=== PATIENT | female | born 1990 | race Caucasian/White ===

== ENCOUNTER 2017-01-18 22:12 | Emergency (ER) | payer MEDICAID ==
--- NOTE | 2017-01-18 22:25 | Emergency Department Record ---
History of Present Illness - General Chief Complaint: Chest Pain Stated Complaint: CHEST PAIN/ANKLE SWOLLEN Time Seen by Provider: 01/18/17 22:13 Source: Patient Mode of Arrival: Ambulatory Limitations: No limitations - History of Present Illness Initial Comments: 26 yo female presents to ED with a CC of right ankle swelling and intermittent chest pain that began yesterday. Patient denies injury to the ankle, denies fevers, chills, or cough symptoms. Patient denies calf pain or swelling, and denies previous history of DVT. Patient does not use OCPs, and denies health problems at her baseline other than SVT. MD Complaint: Chest pain Onset/Timin -: Days(s) Pain Radiation: None Severity: Mild Quality: Aching Improves With: Nothing Worsens With: Nothing - Related Data On Oral Contraceptives: No Allergies Allergy/AdvReac Type Severity Reaction Status Date / Time latex Allergy HIVES Unverified 05/13/16 13:23 Review of Systems Constitutional: Denies: Chills, Fever, Malaise, Night sweats Eyes: Denies: Eye discharge, Eye pain ENT: Denies: Congestion, Ear pain, Epistaxis Respiratory: Denies: Cough, Dyspnea Cardiovascular: Reports: Chest pain. Denies: Dyspnea on exertion, Palpitations , Syncope Endocrine: Denies: Fatigue, Heat or cold intolerance Gastrointestinal: Denies: Abdominal pain, Nausea, Vomiting Genitourinary: Denies: Incontinence, Retention Musculoskeletal: Reports: Arthralgia, Joint swelling (right medial ankle swelling). 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 Hx Dementia: Grandparents Hx HTN: Father Physical Exam - General General Appearance: Alert, Oriented x3, Cooperative, No acute distress, Other ( drinking a Big Gulp on exmaination, well appearing) Limitations: No limitations - Head Head exam: Atraumatic, Normocephalic, Normal inspection Head exam detail: negative: Abrasion, Contusion, Aponte's sign, General tenderness, Hematoma, Laceration - Eye Eye exam: Normal appearance. negative: Conjunctival injection, Periorbital swelling, Periorbital tenderness, Scleral icterus - ENT Ear exam: negative: Auricular hematoma, Auricular trauma Nasal Exam: negative: Active bleeding, Discharge, Dried blood, Foreign body Mouth exam: negative: Drooling, Laceration, Muffled voice, Tongue elevation - Neck Neck exam: Normal inspection. negative: Meningismus, Tenderness - Respiratory Respiratory exam: Normal lung sounds bilaterally. negative: Rales, Respiratory distress, Rhonchi, Stridor - Cardiovascular Cardiovascular Exam: Regular rate, Normal rhythm, Normal heart sounds - GI/Abdominal GI/Abdominal exam: Soft. negative: Rebound, Rigid, Tenderness - Rectal Rectal exam: Deferred - exam: Deferred - Extremities Extremities exam: Pedal edema, Tenderness, Other (Mild STS to the medial right ankle, no erythema, no pain with ROM to suggest septic joint on exam.). negative: Calf tenderness - Back Back exam: Denies: CVA tenderness (R), CVA tenderness (L) - Neurological Neurological exam: Alert, Normal gait, Oriented X3 - Psychiatric Psychiatric exam: Normal affect, Normal mood - Skin Skin exam: Normal color. negative: Abrasion Type of lesion: negative: abrasion Course - Reevaluation(s) Reevaluation #1: 01/18/17 22:24 EKG: NSR 96 Normal axis, normal intervals No acute ST-T wave changes No change from previous 12/18/15 Patient is PERC negative on examination. Reevaluation #2: 01/19/17 00:22 CTA Chest: No PE, sub-centimeter ground glass opacity RUL Right ankle: Nothing acute. Patient was updated on all results, is able to ambulate without difficulty, no evidence for septic joint on examination. Patient appears stable for discharge with treatment for joint inflammation and follow-up in 3-5 days as directed. Medical Decision Making - Lab Data Result diagrams: 01/18/17 22:38 01/18/17 22:38 Disposition Disposition: Discharge Clinical Impression: Acute right ankle pain Disposition: Home, Self-Care Condition: (2) Stable Instructions: Swollen Joint (ED) Additional Instructions: Return to ED if your symptoms worsen or if you have any concerns. Follow-up with your family doctor in 3-5 days as directed. Motrin 600 mg as directed. Forms: Patient Portal Access Time of Disposition: 23:26
[2017-01-18 22:45] LABS: HEMATOCRIT 38.1 % (35.0-47.0); HEMOGLOBIN 12.9 gm/dl (11.6-16.0); MEAN CELL VOLUME 85.6 fl (81-97); MEAN CORPUSCULAR HGB CONC 33.9 g/dl (32-36); MEAN PLATELET VOLUME 11.2 fl (7.4-10.4); PLATELET COUNT 273 K/uL (130-400); RED BLOOD COUNT 4.45 M/uL (3.80-5.40); RED CELL DISTRIBUTION WIDTH 15.2 % (11.5-14.5); WHITE BLOOD COUNT W/O DIFF 13.4 K/uL (4.2-12.2)
[2017-01-18 22:54] LABS: ALB/GLOB RATIO 1.3 (1.1-1.8); ALBUMIN 4.4 gm/dL (3.5-5.0); ALKALINE PHOSPHATASE 71 U/L (38-126); ALT/SGPT 25 U/L (9-52); ANION GAP 6.8 (7-16); AST/SGOT 18 U/L (14-36); BILIRUBIN,TOTAL 0.34 mg/dL (0.2-1.3); BLOOD UREA NITROGEN 14 mg/dL (7-17); CARBON DIOXIDE 26.2 mmol/L (22-30); CREATININE 0.7 mg/dL (0.52-1.04); EST GLOMERULAR FILTRATION RATE > 60 ml/min; GLUCOSE,RANDOM 121 mg/dL (70-110); TOTAL PROTEIN 7.8 gm/dL (6.3-8.2)
== END 2017-01-19 00:26 | disposition home or self-care (01) ==
LOC: ER 22:12
DX: S93.401A Sprain of unspecified ligament of right ankle, initial encounter (principal); R07.9 Chest pain, unspecified; R91.8 Other nonspecific abnormal finding of lung field; X58.XXXA Exposure to other specified factors, initial encounter; I47.1 Supraventricular tachycardia
CPT/HCPCS: 99284 ×2; 80053; 85379; 85027; 73610; 71275; 93005; 93010; Q9967

== ENCOUNTER 2017-08-05 14:29 | Emergency (ER) | payer MEDICAID ==
--- NOTE | 2017-08-05 14:46 | Emergency Department Record ---
History of Present Illness - General Chief Complaint: Fever Stated Complaint: FEVER AND COUGH Time Seen by Provider: 08/05/17 14:40 Source: Patient Mode of Arrival: Ambulatory Limitations: No limitations - History of Present Illness Initial Comments: The patient is here due to a cough, body aches, ST, and fever for 2 days. She also has a mild CLARK. The patient denies any SOB, Sputum production, AP or vomiting. MD Complaint: Fever, Malaise Onset/Timin -: Days(s) Maximum Temperature: 99.8 F Temperature Source: Oral Associated Symptoms: Chills, Cough, Headache, Myalgias, Sore throat Treatments Prior to Arrival: Ibuprofen - Related Data Previous Rx's Medication Instructions Recorded Azithromycin [Zithromax] 250 mg PO ASDIR #6 tab 08/05/17 Allergies Allergy/AdvReac Type Severity Reaction Status Date / Time latex Allergy HIVES Verified 08/05/17 14:38 Travel Screening - Travel/Exposure Within Last 30 Days Have you traveled within the last 30 days?: No - Travel/Exposure Within Last Year Have you traveled outside the [place] in the last year?: No - Additonal Travel Details Have you been exposed to anyone with a communicable illness?: No - Travel Symptoms Symptom Screening: None Review of Systems Constitutional: Reports: Chills, Fever, Malaise Eyes: Denies: Eye discharge ENT: Reports: Congestion, Throat pain Respiratory: Reports: Cough. 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 - RESPIRATORY Hx Respiratory Disorders: No - CARDIOVASCULAR Hx Cardio Disorders: Yes Hx Abnormal EKG: Yes Hx Palpitations: Yes (SVT) - NEURO Hx Neuro Disorders: No - GI Hx GI Disorders: No - Hx Genitourinary Disorders: No - ENDOCRINE Hx Endocrine Disorders: No Hx Diabetes: No Hx Thyroid Disease: No - MUSCULOSKELETAL Hx Musculoskeletal Disorders: No - PSYCH Hx Psych Problems: Yes Hx Anxiety: Yes - HEMATOLOGY/ONCOLOGY Hx Hematology/Oncology Disorders: No Family Medical History Any Significant Family History?: Yes Family Hx Comment (NOT TO BE USED IN PLACE OF ITEMS BELOW): mom has had Guillian Austin the chronic type. Hx Dementia: Grandparents Hx HTN: Father Physical Exam - General General Appearance: Alert, Oriented x3, Cooperative, No acute distress - Head Head exam: Atraumatic, Normocephalic, Normal inspection - Eye Eye exam: Normal appearance, PERRL, EOMI - ENT ENT exam: Mucous membranes moist, Normal external ear exam. negative: Normal exam, Normal orophraynx, TM's normal bilaterally (The L TM is normal but the R TM is obstructed by cerumen.) Throat exam: Tonsillar erythema. negative: Normal inspection, Tonsillomegaly, Tonsillar exudate - Neck Neck exam: Normal inspection, Full ROM. negative: Lymphadenopathy, Meningismus , Tenderness - Respiratory Respiratory exam: Normal lung sounds bilaterally. negative: Respiratory distress, Rhonchi, Stridor, Wheezes - Cardiovascular Cardiovascular Exam: Regular rate, Normal rhythm, Normal heart sounds - GI/Abdominal GI/Abdominal exam: Soft, Normal bowel sounds. negative: Tenderness - Extremities Extremities exam: Normal inspection, Full ROM, Normal capillary refill. negative: Tenderness - Neurological Neurological exam: Alert. negative: Motor sensory deficit Course Vital Signs 08/05/17 14:33 Temperature 100.0 F H Pulse Rate 101 H Respiratory 16 Rate Blood Pressure 115/64 Pulse Ox 98 - Reevaluation(s) Reevaluation #1: I did discuss the need to keep the fever down with Tylenol or Motrin and take the Zithromax as directed. She is to see her PCP if not better next week and to return to the ER if worse. 08/05/17 14:50 Disposition Disposition: Discharge Clinical Impression: Upper respiratory infection, acute Disposition: Home, Self-Care Condition: (2) Stable Instructions: Fever in Adults (ED), Upper Respiratory Infection (ED) Additional Instructions: Please drink plenty of fluids and use Tylenol or Motrin for fever. Take the ZPak as directed. Please see your PCP if not better in 3 days. Return to the ER for any worsening symptoms. Prescriptions: Azithromycin [Zithromax] 250 mg PO ASDIR #6 tab Forms: Patient Portal Access Time of Disposition: 14:46 Quality - Quality Measures Quality Measures: N/A - Blood Pressure Screening View Details: Yes Does Patient Have Any of the Following: No Blood Pressure Classification: Normal BP Reading Systolic Measurement: 115 Diastolic Measurement: 64 Screening for High Blood Pressure: < Normal BP, F/U Not Required > [G8783]
== END 2017-08-05 14:50 | disposition home or self-care (01) ==
LOC: ER 14:29
DX: J06.9 Acute upper respiratory infection, unspecified (principal); R05 Cough; J02.9 Acute pharyngitis, unspecified
CPT/HCPCS: 99282

== ENCOUNTER 2018-08-07 17:13 | Emergency (ER) | payer MEDICAID ==
--- NOTE | 2018-08-07 17:32 | Emergency Department Record ---
History of Present Illness - General Chief Complaint: Back Pain/Injury Stated Complaint: FALL BACK/LT RIB PAIN Time Seen by Provider: 08/07/18 17:28 Source: Patient Mode of Arrival: Ambulatory Limitations: No limitations - History of Present Illness Initial Comments: Yesterday at home slip carrying a basket of clothes and hit mid back on metal step. Local pain. No radiation. Hurts to move, take deep breath, or cough. No prior treatments. No head injury. Onset/Timin -: Days(s) Similar Symptoms Previously: No Place: Home Radiation: None Severity: Moderate Severity scale (1-10): 8 Quality: Aching Consistency: Constant Improves With: None Worsens With: None Context: Other Associated Symptoms: Denies other symptoms - Related Data Allergies Allergy/AdvReac Type Severity Reaction Status Date / Time latex Allergy HIVES Verified 08/05/17 14:38 Travel Screening - Travel/Exposure Within Last 30 Days Have you traveled within the last 30 days?: No Review of Systems Constitutional: Denies: Chills, Fever Eyes: Denies: Eye discharge, Photophobia ENT: Denies: Congestion, Ear pain Respiratory: Denies: Cough, Dyspnea Cardiovascular: Denies: Arrhythmia, Chest pain, Palpitations Endocrine: Denies: Fatigue Gastrointestinal: Denies: Abdominal pain, Nausea, Vomiting Genitourinary: Denies: Abnormal menses Musculoskeletal: Reports: As per HPI, Back pain Skin: Denies: Bruising, Change in color Neurological: Denies: Abnormal gait, Headache, Numbness, Seizure, Tingling, Weakness Psychiatric: Denies: Anxiety, Suicidal thoughts Hematological/Lymphatic: Denies: Anemia Past Medical History - SOCIAL HISTORY Smoking Status: Light tobacco smoker (<10/day) - 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 - RESPIRATORY Hx Respiratory Disorders: No - CARDIOVASCULAR Hx Cardio Disorders: Yes Hx Abnormal EKG: Yes Hx Palpitations: Yes (SVT) - NEURO Hx Neuro Disorders: No - GI Hx GI Disorders: No - Hx Genitourinary Disorders: No - ENDOCRINE Hx Endocrine Disorders: No Hx Diabetes: No Hx Thyroid Disease: No - MUSCULOSKELETAL Hx Musculoskeletal Disorders: No - PSYCH Hx Psych Problems: Yes Hx Anxiety: Yes - HEMATOLOGY/ONCOLOGY Hx Hematology/Oncology Disorders: No Family Medical History Any Significant Family History?: Yes Family Hx Comment (NOT TO BE USED IN PLACE OF ITEMS BELOW): mom has had Guillian [place] the chronic type. Hx Dementia: Grandparents Hx HTN: Father Physical Exam - General General Appearance: Alert, Oriented x3, Cooperative, No acute distress - Head Head exam: Normal inspection - Eye Eye exam: Normal appearance, PERRL - ENT ENT exam: Normal exam, Mucous membranes moist, Normal external ear exam, Normal orophraynx, TM's normal bilaterally - Neck Neck exam: Normal inspection, Full ROM. negative: Tenderness - Respiratory Respiratory exam: Normal lung sounds bilaterally. negative: Respiratory distress - Cardiovascular Cardiovascular Exam: Regular rate, Normal rhythm, Normal heart sounds - GI/Abdominal GI/Abdominal exam: Soft, Normal bowel sounds. negative: Tenderness - Extremities Extremities exam: Normal inspection, Full ROM, Normal capillary refill. negative: Tenderness - Back Back exam: Reports: Paraspinal tenderness (at level of T5-6. NO bruising or abrasions. ) - Neurological Neurological exam: Alert, Normal gait, Oriented X3, Reflexes normal - Psychiatric Psychiatric exam: Normal affect - Skin Skin exam: Normal color. negative: Rash Course Vital Signs 08/07/18 17:23 Temperature 97.5 F L Pulse Rate 89 Respiratory 18 Rate Blood Pressure 112/72 Pulse Ox 99 - Reevaluation(s) Reevaluation #1: 08/07/18 18:10 XR neg. [place] ice and motrin. Pt has meds. Medical Decision Making - Data Complexity MDM Data: X-Ray Ordered and/or Reviewed Disposition Disposition: Discharge Clinical Impression: Contusion, back Disposition: Home, Self-Care Condition: (1) Good Instructions: Contusion in Adults (ED), Ice Pack Application (ED) Forms: Patient Portal Access Time of Disposition: 18:10 Quality - Quality Measures Quality Measures: N/A - Blood Pressure Screening Does Patient Have Any of the Following: No Blood Pressure Classification: Normal BP Reading Systolic Measurement: 112 Diastolic Measurement: 72 Screening for High Blood Pressure: < Normal BP, F/U Not Required > [G8783]
--- NOTE | 2018-08-09 13:16 | RADIOLOGY REPORT ---
EXAM: THORACIC SPINE HISTORY: PATIENT FELL YESTERDAY WITH UPPER BACK PAIN. TECHNIQUE: AP and lateral views of the thoracic spine were obtained. Comparison: No prior thoracic spine series with which to compare. Encounter: Initial. FINDINGS: There is a mild thoracic curve to the left. This may just be due to positioning or spasm. The thoracic spine appears otherwise negative. No fracture of the thoracic spine identified. No obvious paraspinal soft tissue mass seen. The pedicles appear intact. IMPRESSION: 1. MILD THORACIC CURVE TO THE LEFT. 2. THE THORACIC SPINE APPEARS OTHERWISE NEGATIVE. JOB NUMBER: [id number] MTDD
== END 2018-08-07 18:20 | disposition home or self-care (01) ==
LOC: ER 17:13
DX: S20.222A Contusion of left back wall of thorax, initial encounter (principal); W10.8XXA Fall (on) (from) other stairs and steps, initial encounter; Y92.009 Unspecified place in unspecified non-institutional (private) residence as the place of occurrence of the external cause; F17.210 Nicotine dependence, cigarettes, uncomplicated
CPT/HCPCS: 72072; 99283

== ENCOUNTER 2018-12-06 21:38 | Emergency (ER) | payer MEDICAID ==
[2018-12-06 21:59] LABS: URINE APPEARANCE CLEAR; URINE BILIRUBIN NEGATIVE (NEGATIVE); URINE BLOOD NEGATIVE (NEGATIVE); URINE COLOR YELLOW; URINE GLUCOSE (UA) NEGATIVE (NEGATIVE); URINE KETONE TRACE (NEGATIVE); URINE LEUKOCYTE ESTERASE SMALL (NEGATIVE); URINE NITRITE NEGATIVE (NEGATIVE); URINE PROTEIN TRACE (NEGATIVE)
--- NOTE | 2018-12-06 22:00 | Emergency Department Record ---
History of Present Illness - General Chief complaint: Female Urogenital Problem Stated complaint: BURNING VAGINAL PAIN Time Seen by Provider: 12/06/18 21:50 Source: Patient Mode of Arrival: Ambulatory Limitations: No limitations - History of Present Illness Initial comments: 28 yo female presents to ED for evaluation of vaginal irritation and "burning" for the past several days. Patient reports using an OTC yeast treatment without improvement. Patient denies discharge, fevers, chills, or recent illness. Patient denies dysuria or hematuria symptoms, denies abdominal, nausea , or vomiting symptoms. MD Complaint: Other Onset/Timin -: Days(s) Location: [place], Perineum Radiation: Non-radiating Severity: Severe Severity scale (1-10): 9 Quality: Burning Consistency: Constant, Getting worse Improves with: Other Worsens with: Bathing, Medication, Movement, Urination Patient : No Associated Symptoms: Dysuria - Related Data Sexually active: Yes Previous Rx's Medication Instructions Recorded Clotrimazole/Betamethasone Dip 45 gm TP BID #1 cream..g. 12/06/18 [Clotrimazole-Betamethasone Crm] Metronidazole [Flagyl] 500 mg PO Q8H #20 tablet 12/06/18 Allergies Allergy/AdvReac Type Severity Reaction Status Date / Time latex Allergy HIVES Verified 08/05/17 14:38 Travel Screening - Travel/Exposure Within Last 30 Days Have you traveled within the last 30 days?: No - Travel Symptoms Symptom Screening: None Review of Systems Constitutional: Denies: Chills, Fever, Malaise, Night sweats Eyes: Denies: Eye discharge, Eye pain ENT: Denies: Congestion, Ear pain, Epistaxis Respiratory: Denies: Cough, Dyspnea Cardiovascular: Denies: Chest pain, Dyspnea on exertion Endocrine: Denies: Fatigue, Heat or cold intolerance Gastrointestinal: Denies: Abdominal pain, Nausea, Vomiting Genitourinary: Denies: Incontinence, Retention Musculoskeletal: Denies: Arthralgia, Back pain Skin: Denies: Bruising, Change in color Neurological: Denies: Abnormal gait, Confusion, Headache, Seizure Psychiatric: Denies: Anxiety Hematological/Lymphatic: Denies: Anemia, Blood Clots Past Medical History - SOCIAL HISTORY Smoking Status: Light tobacco smoker (<10/day) - 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 - RESPIRATORY Hx Respiratory Disorders: No - CARDIOVASCULAR Hx Cardio Disorders: Yes Hx Abnormal EKG: Yes Hx Palpitations: Yes (SVT) - NEURO Hx Neuro Disorders: No - GI Hx GI Disorders: No - Hx Genitourinary Disorders: No - ENDOCRINE Hx Endocrine Disorders: No Hx Diabetes: No Hx Thyroid Disease: No - MUSCULOSKELETAL Hx Musculoskeletal Disorders: No - PSYCH Hx Psych Problems: Yes Hx Anxiety: Yes - HEMATOLOGY/ONCOLOGY Hx Hematology/Oncology Disorders: No Family Medical History Any Significant Family History?: Yes Family Hx Comment (NOT TO BE USED IN PLACE OF ITEMS BELOW): mom has had Guillian Pyatt the chronic type. Hx Dementia: Grandparents Hx HTN: Father Physical Exam - General General Appearance: Alert, Oriented x3, Cooperative, No acute distress Limitations: No limitations - Head Head exam: Atraumatic, Normocephalic, Normal inspection Head exam detail: negative: Abrasion, Contusion, Aponte's sign, General tenderness, Hematoma, Laceration - Eye Eye exam: Normal appearance. negative: Conjunctival injection, Periorbital swelling, Periorbital tenderness, Scleral icterus - ENT Ear exam: negative: Auricular hematoma, Auricular trauma Nasal Exam: negative: Active bleeding, Discharge, Dried blood, Foreign body Mouth exam: negative: Drooling, Laceration, Tongue elevation - Neck Neck exam: Normal inspection. negative: Meningismus, Tenderness - Respiratory Respiratory exam: Normal lung sounds bilaterally. negative: Rales, Respiratory distress, Rhonchi, Stridor - Cardiovascular Cardiovascular Exam: Regular rate, Normal rhythm, Normal heart sounds - GI/Abdominal GI/Abdominal exam: Soft. negative: Rebound, Rigid, Tenderness - Rectal Rectal exam: Deferred - exam: Deferred - Extremities Extremities exam: Normal inspection. negative: Pedal edema, Tenderness - Back Back exam: Denies: CVA tenderness (R), CVA tenderness (L) - Neurological Neurological exam: Alert, Normal gait, Oriented X3 - Psychiatric Psychiatric exam: Normal affect, Normal mood - Skin Skin exam: Normal color. negative: Abrasion Type of lesion: negative: abrasion Course Vital Signs 12/06/18 21:44 Temperature 98.8 F Pulse Rate [ 98 H Left] Respiratory 16 Rate Blood Pressure 110/61 [Left Arm] Pulse Ox 98 - Reevaluation(s) Reevaluation #1: 12/06/18 22:25 UA was reviewed, appears more c/w contamination. Wet prep was reviewed, no psuedohyphae were visualized however clue celss were present. Will treat with Flagyl, Diflucan x 1 in ED, and Clotrimazole as directed. Patient appears stable for discharge at this time. Disposition Disposition: Discharge Clinical Impression: Bacterial vaginosis Disposition: Home, Self-Care Condition: (2) Stable Instructions: Bacterial Vaginosis (ED) Additional Instructions: Return to ED if your symptoms worsen or if you have any concerns. Flagyl, Clotrimazole cream as directed. Follow-up with your family doctor in 3-5 days as directed. Prescriptions: Clotrimazole/Betamethasone Dip [Clotrimazole-Betamethasone Crm] 45 gm TP BID #1 cream..g. Metronidazole [Flagyl] 500 mg PO Q8H #20 tablet Forms: Patient Portal Access Time of Disposition: 22:28 Quality - Quality Measures Quality Measures: N/A - Blood Pressure Screening Does Patient Have Any of the Following: No Blood Pressure Classification: Normal BP Reading Systolic Measurement: 110 Diastolic Measurement: 61 Screening for High Blood Pressure: < Normal BP, F/U Not Required > [G8783]
[2018-12-06 22:09] LABS: URINE RBC 0 - 2 (NONE SEEN)
[2018-12-06 22:10] LABS: URINE BACTERIA 1+
[2018-12-06] MEDS ORDERED: METRONIDAZOLE 250 MG TABLET PO ONE (22:24)
[2018-12-06] MEDS ORDERED: FLUCONAZOLE 100 MG TABLET PO ONE (22:24)
== END 2018-12-06 22:37 | disposition home or self-care (01) ==
LOC: ER 21:38
DX: N76.0 Acute vaginitis (principal); R30.0 Dysuria; F17.210 Nicotine dependence, cigarettes, uncomplicated
CPT/HCPCS: 99283 ×2; 81001; Q0111; 87210